=== PATIENT | female | born 1955 | race Hispanic/Latino ===

== ENCOUNTER → 2018-08-31 | Day surgery (SDC) | payer OTHER ==
[~2018-08-31] MED LIST: FENTANYL CITRATE/PF 100MCG/2 ML INJ ONE; FIBER SELECT G1 EACH PO; LEVOTHYROXINE75 MCG PO; LISINOPRIL10 MG PO; MIDAZOLAM HCL 2 MG/2 ML VIAL ONE; PANTOPRAZOLE SO40 MG PO; PROBIOTICS PO; PROPOFOL IV EMULSION 10 MG/ML 50 ML VIAL ONE
[2018-08-31 16:45] VITALS: BP 122/70
== END | disposition home or self-care (01) ==
LOC: OR 12:39
PROVIDERS: ATTEND Internal Medicine Gastroenterology
DX: Z09 Encounter for follow-up examination after completed treatment for conditions other than malignant neoplasm (principal); C16.4 Malignant neoplasm of pylorus; K29.50 Unspecified chronic gastritis without bleeding; K44.9 Diaphragmatic hernia without obstruction or gangrene; K31.89 Other diseases of stomach and duodenum; K21.9 Gastro-esophageal reflux disease without esophagitis; I10 Essential (primary) hypertension; E03.9 Hypothyroidism, unspecified; Z01.810 Encounter for preprocedural cardiovascular examination; Z68.37 Body mass index [BMI] 37.0-37.9, adult; Z86.19 Personal history of other infectious and parasitic diseases
CPT/HCPCS: 43239; 93005; J2250; J2704

== ENCOUNTER 2018-10-04 07:25 | Inpatient (IN) | payer OTHER ==
[2018-10-01 11:55] LABS: BASOPHILS % 0.4 % (0.0-1.0); EOSINOPHILS # (AUTO) 0.1 (0.0-0.4); EOSINOPHILS % 1.3 % (0.0-6.0); HEMATOCRIT 37.5 % (34.2-44.1); HEMOGLOBIN 11.7 g/dL (12.0-16.0); LYMPHOCYTES # (AUTO) 1.8 (1.0-3.2); MEAN CORPUSCULAR HEMOGLOBIN 27.9 pg (28-32); MEAN CORPUSCULAR HGB CONC 31.2 g/dL (31-35); MEAN CORPUSCULAR VOLUME 89.3 fL (81-99); MONOCYTES # (AUTO) 0.7 (0.2-0.8); MONOCYTES % 8.1 % (4.4-11.3); NEUTROPHILS # (AUTO) 5.6 (2.1-6.9); PLATELET COUNT 214 x10e3/uL (140-360); RED CELL DISTRIBUTION WIDTH 12.8 % (11.7-14.4)
[2018-10-01 12:14] LABS: ALANINE AMINOTRANSFERASE 17 IU/L (0-55); ALBUMIN 3.8 g/dL (3.5-5.0); ALKALINE PHOSPHATASE 90 IU/L (40-150); ANION GAP 12.2 mmol/L (8-16); BLOOD UREA NITROGEN 9 mg/dL (7-26); BUN/CREATININE RATIO 11 (6-25); CALCIUM 9.4 mg/dL (8.4-10.2); CARBON DIOXIDE 28 mmol/L (22-29); CHLORIDE 100 mmol/L (98-107); EST GLOMERULAR FILTRATION RATE > 60 ML/MIN (60-); GLUCOSE 100 mg/dL (74-118); POTASSIUM 4.2 mmol/L (3.5-5.1); SODIUM 136 mmol/L (136-145)
--- NOTE | 2018-10-01 12:21 | Diagnostic Imaging Report ---
EXAMINATION: CHEST 2 VIEWS INDICATION: Pre-op. COMPARISON: None FINDINGS: TUBES and LINES: None. LUNGS: Lungs are well inflated. Lungs are clear. There is no evidence of pneumonia or pulmonary edema. PLEURA: No pleural effusion or pneumothorax. HEART AND MEDIASTINUM: The cardiomediastinal silhouette is unremarkable. BONES AND SOFT TISSUES: No acute osseous abnormality. There are old healed left posterior fourth through seventh rib fractures. UPPER ABDOMEN: No free air under the diaphragm. There are cholecystectomy clips. IMPRESSION: No acute radiographic abnormality. Signed by: Dr. Darren Aguirre MD on 10/01/2018 12:17 PM
[2018-10-04] VITALS (11 sets, daily range): BP systolic 104–130; BP diastolic 53–65
[~2018-10-04] VITALS: Ht 152.4 cm; Wt 85.0 kg
[~2018-10-04 07:25] MED LIST changes: -FENTANYL CITRATE/PF 100MCG/2 ML INJ ONE; -MIDAZOLAM HCL 2 MG/2 ML VIAL ONE; -PROPOFOL IV EMULSION 10 MG/ML 50 ML VIAL ONE
--- OUTSIDE RECORDS SUMMARY | 2018-10-04 07:27 | XMS REPORT ---
Author Author [facility] Address Unknown Phone Unavailable Care Team Providers Care Microgrinder Operator Name Role Phone Apurva HOWARD Unavailable Unavailable Problems This patient has no known problems. Allergies, Adverse Reactions, Alerts This patient has no known allergies or adverse reactions. Medications This patient has no known medications. Results Test Description Test Time Test Comments Text Results Atomic Results Result Comments CHEST 2 VIEWS 2018-10-01 12:16:00 [place] [address] Patient Name: MATT MARTINES MR #: [id number] : 1955 Age/Sex: 63/F Req #: [id number] Adm Physician: Ordered by: TY HOWARD MD Report #: [id number] Location: OR Room/Bed: Procedure: [id number] DX/CHEST 2 VIEWS Exam Date: 10/01/18 Exam Time: 1153 REPORT STATUS: Signed EXAMINATION: CHEST 2 VIEWS INDICATION: Pre-op. COMPARISON: None FINDINGS: TUBES and LINES: None. LUNGS: Lungs are well inflated. Lungs are clear. There is no evidence of pneumonia or pulmonary edema. PLEURA: No pleural effusion or pneumothorax. HEART AND MEDIASTINUM: The cardiomediastinal silhouette is unremarkable. BONES AND SOFT TISSUES: No acute osseous abnormality. There are old healed left posterior fourth through seventh rib fractures. UPPER ABDOMEN: No free air under the diaphragm. There are cholecystectomy clips. IMPRESSION: No acute radiographic abnormality. Signed by: Dr. Lamin Amos MD on 10/01/2018 12:17 PM Dictated By: LAMIN AMOS MD 121 Transcribed By: RICK on 10/01/181216 COPY TO: TY HOWARD MD
[2018-10-04] MEDS ORDERED: MINERAL OIL STERILE 10ML VIAL ONE (10:30)
[2018-10-04] MEDS ORDERED: ACETAMINOPHEN 1000 MG/100 ML 100 ML IV ONE (13:30)
[2018-10-04] MEDS: DEXTROSE 5%/LACTATED RINGERS 1,000 ML IV SCH ×2 (13:58→19:35)
[2018-10-04] MEDS ORDERED: NALOXONE HCL INJ 0.4 MG/ML AMP IV PRN (14:00)
[2018-10-04] MEDS ORDERED: ACETAMINOPHEN 1000 MG/100 ML IV PRN (14:00)
[2018-10-04] MEDS ORDERED: ONDANSETRON HCL INJ 2MG/ML 2ML 2 MG/ML VIAL IV PRN (14:00)
[2018-10-04] MEDS ORDERED: ONDANSETRON HCL INJ 2MG/ML 2ML 2 MG/ML VIAL ONE ×2 (14:32→19:58)
[2018-10-04] MEDS ORDERED: METOCLOPRAMIDE HCL 10 MG/2ML VIAL ONE (14:47)
[2018-10-04] MEDS ORDERED: HYDROMORPHONE 0.2MG/ML-SOD CHL 30ML PCA SYRINGE IV ONE (14:52)
[2018-10-04] MEDS: HYDROMORPHONE 0.2MG/ML-SOD CHL 30ML PCA SYRINGE IV PRN (14:55)
[2018-10-04] MEDS ORDERED: HYDROMORPHONE 2MG/ML 2 MG/ML ML ONE (14:57)
[2018-10-04] MEDS: SODIUM CHLORIDE 0.9% 250ML IRRIG IR SCH ×3 (15:00→22:02)
[2018-10-04] MEDS ORDERED: PNEUMOCOCCAL VACCINE POLYVALENT 23 MCG/0.5 ML VIAL IM SCH (15:41)
[2018-10-04] MEDS ORDERED: CEFOXITIN 1GM/ NS 50ML 50 ML IV SCH (18:00)
[2018-10-04] MEDS: NITROGLYCERIN 2% OINT 1 GM PKT TOP SCH ×2 (18:37→23:31)
[2018-10-04] MEDS ORDERED: MIDAZOLAM HCL 2 MG/2 ML VIAL ONE (19:31)
[2018-10-04] MEDS ORDERED: FENTANYL CITRATE/PF 100MCG/2 ML INJ ONE (19:31)
[2018-10-04] MEDS ORDERED: CEFOXITIN SOD 1 GM VIAL ONE (19:58)
[2018-10-04] MEDS ORDERED: LIDOCAINE HCL 2% LOCAL INJ 5 ML SDV VIAL INJ ONE (19:58)
[2018-10-04] MEDS ORDERED: DEXAMETHASONE SOD PHOS INJ 4 MG/ML VIAL ONE (19:58)
[2018-10-04] MEDS ORDERED: PROPOFOL IV EMULSION 10 MG/ML 20 ML VIAL ONE (19:58)
[2018-10-04] MEDS ORDERED: SEVOFLURANE INHAL SOLN 250 ML PEN BTL ONE (19:58)
[2018-10-04] MEDS ORDERED: ROCURONIUM BROMIDE 10 MG/ML 5ML VIAL ONE (19:58)
[2018-10-04] MEDS ORDERED: GLYCOPYRROLATE INJ 1MG/ 5 ML SYR ONE (19:58)
[2018-10-04] MEDS ORDERED: NEOSTIGMINE 5 MG/5ML SYR ONE (19:58)
--- NOTE | 2018-10-04 20:23 | Operative Report ---
DATE OF PROCEDURE: 10/04/2018 SURGEON: Uvaldo Arreola MD PREOPERATIVE DIAGNOSIS: Carcinoma of the distal stomach. POSTOPERATIVE DIAGNOSIS: Carcinoma of the distal stomach. OPERATION PERFORMED: Exploratory laparotomy, subtotal gastrectomy with antecolic Hedy-en-Y reconstruction. ASSISTANTS: 1. Jonathon Arreola MD. 2. LEONARDA Rice. ANESTHESIA: General. COMPLICATIONS: None. ESTIMATED BLOOD LOSS: 100 mL. DESCRIPTION OF PROCEDURE: With the patient lying in bed in the supine position under good general endotracheal anesthesia, the abdomen was prepped with Betadine solution and draped in the usual manner. An upper midline incision was made. It was carried down through the subcutaneous tissue down to the midline fascia. The midline fascia was opened. The peritoneum was opened and the abdomen was entered. Upon entering the abdominal cavity, examination revealed the fact that there was a hard mass at the area of the pylorus and the pre-pyloric area. There were some palpable lymph nodes in the left gastric area. The liver was clean of any disease. The omentum was clean of any disease. The rest of the abdominal cavity appeared to be within normal limits. There were some adhesions to the subhepatic space from the patient's previous cholecystectomy. We decided to go ahead and proceed with a subtotal gastrectomy as had been planned. The mesentery of the colon was then detached from the colon and the mesentery of the lesser sac was similarly and brought upwards. At this point, we had good access to the retrogastric space and we could see where the lesion was stuck to the anterior aspect of the pancreas. There was some adenopathy palpable in the left gastric area, but it was difficult to tell whether this was just simply a reactive thing from the patient having a chronic gastric outlet obstruction. The short gastrics were then taken down with EnSeal device. The proximal stomach was then divided with three applications of the [place] stapler doing roughly about 85% gastrectomy. The left gastric was then identified and ligated with #0 silk. The lesser curvature was then freed up all the way down to the area of the pylorus and at this point, we slowly and carefully the pancreas from the lesion. Everything was ligated with 2-0 silk ties or 2-0 silk suture ligatures. This gave us complete separation and then the duodenum was divided with an application of the TA-60 stapler and the specimen was sent for pathological examination. After this was done, hemostasis was ascertained. The gastric remnant with staple line was then oversewn with 2-0 silk sutures. The duodenal stump was oversewn with 3-0 silk sutures. The ligament of Treitz was then identified and distal to the ligament of Treitz, the jejunum was divided with an application of ANITA-75 stapler. The Hedy-en-Y limb was then brought up to the upper abdomen in an antecolic fashion and the gastrojejunal anastomosis was then performed with another application of ANITA-75 stapler with the remaining opening closed with a TA-60 stapler. The anastomosis was then reinforced with 2-0 silk sutures. 60 cm distal to the gastrojejunostomy, a jejunojejunostomy was then performed with another application of ANITA-75 stapler and the remaining opening was closed with a TA-60 stapler. The anastomosis was reinforced with 3-0 silk. The mesenteric rent to the Hedy limb was then closed with a running suture of 2-0 Vicryl. The abdomen was then copiously irrigated. Perfect hemostasis was ascertained. The NG tube was placed in the pouch properly and the abdomen was then closed in layers. The peritoneum was closed with a running suture of #1 Vicryl. The midline fascia was closed with a running suture of #1 PDS. The subcutaneous tissue was approximated with 2-0 chromic and the skin was closed with clips. A dressing was applied. The sponge, lap, and needle count was correct. The patient tolerated the procedure well and returned to the recovery room in stable condition. MD DAMIR Gibbs/MICHELL /[id number]
[2018-10-04] MEDS: CEFOXITIN 1GM/ NS 50ML 50 ML IV SCH (20:37)
[2018-10-05] VITALS (18 sets, daily range): BP systolic 89–137; BP diastolic 46–100
[2018-10-05] MEDS: SODIUM CHLORIDE 0.9% 250ML IRRIG IR SCH ×6 (02:00→21:53)
[2018-10-05] MEDS: CEFOXITIN 1GM/ NS 50ML 50 ML IV SCH (03:11)
[2018-10-05 04:59] LABS: BASOPHILS % 0.1 % (0.0-1.0); HEMATOCRIT 27.1 % (34.2-44.1); HEMOGLOBIN 8.5 g/dL (12.0-16.0); LYMPHOCYTES # (AUTO) 0.6 (1.0-3.2); LYMPHOCYTES % 4.6 % (18.0-39.1); MEAN CORPUSCULAR HEMOGLOBIN 28.2 pg (28-32); MEAN CORPUSCULAR HGB CONC 31.4 g/dL (31-35); MONOCYTES % 7.3 % (4.4-11.3); NEUTROPHILS # (AUTO) 12.3 (2.1-6.9); NEUTROPHILS % 87.5 % (38.7-80.0); PLATELET COUNT 179 x10e3/uL (140-360); RED BLOOD COUNT 3.01 x10e6/uL (3.6-5.1); RED CELL DISTRIBUTION WIDTH 13.1 % (11.7-14.4)
[2018-10-05] MEDS: DEXTROSE 5%/LACTATED RINGERS 1,000 ML IV SCH ×3 (05:17→19:20)
[2018-10-05] MEDS: NITROGLYCERIN 2% OINT 1 GM PKT TOP SCH ×2 (05:22→12:00)
[2018-10-05 05:34] LABS: ANION GAP 8.5 mmol/L (8-16); CREATININE, SERUM 1.01 mg/dL (0.57-1.11); POTASSIUM 4.5 mmol/L (3.5-5.1)
[2018-10-05 08:49] LABS: EOSINOPHILS % (MANUAL) 1 % (0-7); LYMPHOCYTES % (MANUAL) 9 % (19-48); MONOCYTES % (MANUAL) 1 % (3.4-9.0); NEUTROPHILS % (MANUAL) 89 % (40-74)
[2018-10-05] MEDS: HYDROMORPHONE 0.2MG/ML-SOD CHL 30ML PCA SYRINGE IV PRN (08:57)
--- NOTE | 2018-10-05 11:39 | NUR ---
patient stood up to chair, got a little dizzy, but is still down now and she states she feels good. vss
--- NOTE | 2018-10-05 15:00 | NUR ---
Nutrition Screen Note RD Recommendation for Physician: -Rec advancing to GI soft diet as medically appropriate -The patient meets criteria for MODERATE protein-calorie malnutrition. Plan of Care: RD following, monitoring for tolerance and adequacy Nutrition reason for involvement: Nutrition Risk Trigger MST Primary Diagnose(s): stomach cancer s/p subtotal gastrectomy on 10/04 PMH: No H&P in chart Ht: 60in Wt: 186lb BMI: 36.3kg/m2 IBW: 100lb RD Assessment: (10/05) Chart reviewed. Labs and meds reviewed. 63yo F, s/p subtotal gastrectomy on 10/04. POD 1. Visited pt in the room. NGT to wall suction. IVF running at 125mL/hr. Pt was doing well after surgery. No GI complains noted. Flatus absent but pt was burping. 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 No physical sign of muscle and fat loss noted. Will continue to monitor and follow. Please consult as needed. Current Diet: NPO Malnutrition Evaluation (10/05) The patient meets criteria for MODERATE protein-calorie malnutrition. Energy intake: <75% of estimated energy requirements for >1 month Weight loss: >5% in 1 month (Acute) Fat loss: None Muscle loss: None Supporting Evidence: Fluid accumulation: unable to evaluate Functional Status: no changes Diet Education Needs Assessment: Diet education not indicated. Nutrition Care Level: low Signed: Susie Sauceda, MS, RD, LD
--- NOTE | 2018-10-05 17:14 | NUR ---
CASE MANAGEMENT INITIAL ASSESSMENT District Court Justice to bedside to discuss plan of care with patient/family. CM/SW role and care transitions discussed. Anticipated discharge plan discussed along with duration of care. CM/SW discussed patients right to make decisions in care. CM/SW work hours given. Patient lives: Admit/Transfer: DIRECT ADMIT Hospital/ER visits since last admit:0 POA/Emergency contact: MAURICIO MARTINES Current/Previous Home Health: NONE PCP/Follow-up Care: DR MCKEON Current/Previous DME:NONE Medications (referring to index hospitalization or the first time you were in the hospital) a. Were changes made in your medications when you were in the hospital on [date of index hospitalization]? Yes No Not sure Explain: Note: If no or not sure, please skip to question d b. Did you understand the changes? Yes No Explain: c. Were you able to obtain your new medications right away? Yes No n/a SNF only Explain: d. Were you able to take your medications like the doctor wanted you to? Yes No Explain: e. Did the hospital give you an accurate, easy to understand list of medications when you left? Yes No n/a SNF only Explain: Scale of 1-10 how comfortable does patient feel with disease management in outpatient settin Other Services: NONE Employment Status: WORKS Areas of Concerns: CANCER Referral Needs: TO BE DETERMINED Education Needs: TO BE DETERMINED IMM/SÁNCHEZ given and signed (if applicable): N/A Goal for discharge:HOME WITH SOON POSSIBLE CM/SW left business card at the bedside with contact information. Name and number was also written on the patients whiteboard. Patient verbalized understanding of discussion. CM will follow-up with ongoing discharge and transition of care needs.
--- NOTE | 2018-10-05 17:17 | NUR ---
ARRIVED VIA WC FROM ICU, STANDBY ASSIST TO GET IN BED, NGT IRRIGATED AND CONNECTED TO LCWS, DENIES PAIN AT THIS TIME, CALL LIGHT WITHIN REACH, FAMILY AT SIDE
--- NOTE | 2018-10-05 19:06 | NUR ---
WALKING ROUNDS PERFORMED, RECEIVED PT LAYING SEMI FOWLERS IN BED, AAOX3, RR EVEN AND NON-LABORED, ON RA. NGT TO (L) NARE CONNECTED TO SUCTION. NO S/SX OF DISTRESS NOTED. FIRST BREAKER FEEDER BUTTON WITHIN REACH. LEFT PT LAYING SEMI FOWLERS IN BED, BED IN LOW LOCKED POSITION, SIDE RAILS UPX2, CALL LIGHT AND PHONE WITHIN REACH.
--- NOTE | 2018-10-05 21:53 | NUR ---
REPOSITIONED PT IN BED FOR COMFORT.
[2018-10-06] VITALS (7 sets, daily range): BP systolic 135–163; BP diastolic 61–69
[2018-10-06] MEDS: SODIUM CHLORIDE 0.9% 250ML IRRIG IR SCH ×6 (02:05→23:00)
[2018-10-06] MEDS: HYDROMORPHONE 0.2MG/ML-SOD CHL 30ML PCA SYRINGE IV PRN (02:53)
[2018-10-06] MEDS: DEXTROSE 5%/LACTATED RINGERS 1,000 ML IV SCH ×3 (02:58→21:56)
--- NOTE | 2018-10-06 07:00 | NUR ---
PT RESTING IN BED AA0X3. PT IS IN NO S.S OF DISTRESS. PT IS ON CLINICAL REVIEW SPECIALIST PUMP FOR PAIN COMFORT S/P GASTRECTOMY. DRESSING TO ABD CLEAN AND DRY. COVERED WITH ABD BINDER. PT IS NPO AND ON IV FLUIDS FOR NOW. IV IN PLACE DRY AND INTACT W/OUT S/ OF INFILTRATION. NG TUBE TO THE LEFT NARE WITH LCS. CANISTER FILLED TO ABOUT 200CC WITH DARK BROWN/RED OUTPUT. WILL CONTINUE TO MONITOR PT AT THIS TIME, SIDE RAILSX2, BED WHEELS LOCKED, CALL LIGHT IS WITHIN EASY REACH, INSTRUCTED TO CALL FOR ASSISTANCE IF NEEDED
[2018-10-06 08:01] LABS: BASOPHILS % 0.2 % (0.0-1.0); EOSINOPHILS # (AUTO) 0.2 (0.0-0.4); EOSINOPHILS % 1.9 % (0.0-6.0); HEMATOCRIT 25.9 % (34.2-44.1); HEMOGLOBIN 8.1 g/dL (12.0-16.0); LYMPHOCYTES # (AUTO) 1.2 (1.0-3.2); LYMPHOCYTES % 10.2 % (18.0-39.1); MEAN CORPUSCULAR HEMOGLOBIN 28.8 pg (28-32); MEAN CORPUSCULAR HGB CONC 31.3 g/dL (31-35); MEAN CORPUSCULAR VOLUME 92.2 fL (81-99); MONOCYTES # (AUTO) 1.4 (0.2-0.8); MONOCYTES % 11.7 % (4.4-11.3); NEUTROPHILS % 75.6 % (38.7-80.0); PLATELET COUNT 159 x10e3/uL (140-360); RED BLOOD COUNT 2.81 x10e6/uL (3.6-5.1); RED CELL DISTRIBUTION WIDTH 13.5 % (11.7-14.4)
[2018-10-06 08:11] LABS: ANION GAP 7.2 mmol/L (8-16); BLOOD UREA NITROGEN 6 mg/dL (7-26); BUN/CREATININE RATIO 9 (6-25); CALCIUM 8.3 mg/dL (8.4-10.2); CARBON DIOXIDE 27 mmol/L (22-29); CHLORIDE 104 mmol/L (98-107); CREATININE, SERUM 0.68 mg/dL (0.57-1.11); EST GLOMERULAR FILTRATION RATE > 60 ML/MIN (60-); GLUCOSE 120 mg/dL (74-118); POTASSIUM 4.2 mmol/L (3.5-5.1); SODIUM 134 mmol/L (136-145)
[2018-10-06] MEDS ORDERED: HYDROMORPHONE 0.2MG/ML-SOD CHL 30ML PCA SYRINGE IV PRN (11:45)
[2018-10-06] MEDS ORDERED: BISACODYL 10 MG SUPP PR ONE (11:45)
--- NOTE | 2018-10-06 11:56 | NUR ---
PT VOIDED AFTER COULTER REMOVAL INTO TOILET AT THIS TIME
--- NOTE | 2018-10-06 12:41 | NUR ---
BASAL DC AT THIS TIME FROM APPLICATION SECURITY CONSULTANT PUMP
--- NOTE | 2018-10-06 20:41 | Diagnostic Imaging Report ---
Abdomen/KUB INDICATION: ^NGT PLACEMENT ^20181006 ^2019 COMPARISON: None. FINDINGS: Portable, supine image obtained at 6 hours. The lung bases were not included on the image. Medical Devices: The terminus of a nasogastric tube is visualized. It may or may not be within the stomach. The sidehole is not included on this image. There are multiple ventral abdominal wall solange. Cholecystectomy clips are present. Bowel: Unremarkable bowel gas pattern. No dilated bowel loops. No pneumatosis Free air: None Calcifications: Lobulated calcification in the pelvis measures 2 cm and may be related to a fibroid. Organomegaly: None Bones: Degenerative changes of the lower lumbar spine. IMPRESSION: The distal aspect of the NG tube is not imaged. Precise location within the stomach cannot be ascertained. Unremarkable bowel gas pattern. Signed by: Dr. Joanie Breen MD on 10/06/2018 8:37 PM
--- NOTE | 2018-10-06 22:42 | Diagnostic Imaging Report ---
EXAM: ABDOMEN-1VIEW (KUB) DATE: 10/06/2018 9:14 PM INDICATION: NG tube placement COMPARISON: KUB 10/06/2018 FINDINGS: LINES/TUBES: Nasogastric tube tip and sidehole project over the gastric fundus and body. BOWEL PATTERN: No evidence for obstruction. SOFT TISSUES: No abnormal calcifications. No mass effect. Skin solange along the midline abdomen. Surgical clips in the right upper quadrant. LUNG BASES: Left basilar atelectasis. BONES: No acute findings. IMPRESSION: Nasogastric tube tip and sidehole project over the stomach. Signed by: DR. Garry Shin MD on 10/06/2018 10:39 PM
[2018-10-07] VITALS (7 sets, daily range): BP systolic 141–170; BP diastolic 62–71
[2018-10-07] MEDS: NITROGLYCERIN 2% OINT 1 GM PKT TOP PRN ×3 (00:21→21:30)
[2018-10-07] MEDS: SODIUM CHLORIDE 0.9% 250ML IRRIG IR SCH ×4 (02:03→14:51)
[2018-10-07] MEDS: DEXTROSE 5%/LACTATED RINGERS 1,000 ML IV SCH ×3 (03:08→19:00)
[2018-10-07 05:57] LABS: BASOPHILS % 0.1 % (0.0-1.0); EOSINOPHILS % 0.2 % (0.0-6.0); HEMATOCRIT 26.7 % (34.2-44.1); HEMOGLOBIN 8.3 g/dL (12.0-16.0); LYMPHOCYTES # (AUTO) 1.6 (1.0-3.2); LYMPHOCYTES % 14.2 % (18.0-39.1); MEAN CORPUSCULAR HEMOGLOBIN 28.4 pg (28-32); MEAN CORPUSCULAR HGB CONC 31.1 g/dL (31-35); MEAN CORPUSCULAR VOLUME 91.4 fL (81-99); MONOCYTES # (AUTO) 1.1 (0.2-0.8); MONOCYTES % 9.5 % (4.4-11.3); NEUTROPHILS # (AUTO) 8.5 (2.1-6.9); NEUTROPHILS % 75.5 % (38.7-80.0); PLATELET COUNT 203 x10e3/uL (140-360); RED BLOOD COUNT 2.92 x10e6/uL (3.6-5.1); RED CELL DISTRIBUTION WIDTH 13.3 % (11.7-14.4)
[2018-10-07 06:20] LABS: ANION GAP 8.9 mmol/L (8-16); BLOOD UREA NITROGEN < 5 mg/dL (7-26); CALCIUM 8.7 mg/dL (8.4-10.2); CARBON DIOXIDE 29 mmol/L (22-29); CHLORIDE 102 mmol/L (98-107); CREATININE, SERUM 0.67 mg/dL (0.57-1.11); EST GLOMERULAR FILTRATION RATE > 60 ML/MIN (60-); GLUCOSE 123 mg/dL (74-118); POTASSIUM 3.9 mmol/L (3.5-5.1); SODIUM 136 mmol/L (136-145)
[2018-10-07 06:23] LABS: BUN/CREATININE RATIO 7 (6-25)
[2018-10-07] MEDS ORDERED: HYDROMORPHONE 2MG/ML 2 MG/ML ML IV PRN (18:15)
--- NOTE | 2018-10-07 18:18 | NUR ---
ng tube dc at this time. pt tolerated well instructor substitute cosmetology pump dc . pt aware of pain medicine available on emar to ask for if needing pain management. will continue to monitor at this time.
[2018-10-07] MEDS: BISACODYL 10 MG SUPP PR SCH (21:35)
[2018-10-08] VITALS (8 sets, daily range): BP systolic 136–156; BP diastolic 60–66
--- NOTE | 2018-10-08 07:00 | NUR ---
BEDSIDE ROUNDS COMPLETE NO DISTRESS NOTED UPDATED ON POC VOICED UNDERSTANDING, DENIES PAIN AT THIS TIME, IVF INFUSING TO R HAND 20G NO SS OF INFILTRATION NOTED, NO OTHER CO VOICED CALL LIGHT IN REACH WILL CONTINUE OT MONITOR
[2018-10-08] MEDS: BISACODYL 10 MG SUPP PR SCH (08:10)
--- NOTE | 2018-10-08 08:30 | NUR ---
UP TO BATHROOM WITH ASSISTANCE, THEN ASSISTED TO CHAIR. DENIES PAIN AT THIS TIME, WILL CONTINUE OT MONITOR
--- NOTE | 2018-10-08 13:34 | NUR ---
PER DISCUSSION IN ROUNDS WITH INTERDISCIPLINARY TEAM, PATIENT TO ADVANCED DIET FOR LUNCH TO CLEAR LIQUIDS AND IF TOLERATING ADVANCE FOR DINNER FOR POSSIBLE DISCHARGE TOMORROW.
[2018-10-08] MEDS: DEXTROSE 5%/LACTATED RINGERS 1,000 ML IV SCH ×2 (14:00→21:51)
--- NOTE | 2018-10-08 17:39 | NUR ---
Nutrition Screen Note RD Recommendation for Physician: - Rec advancing to GI soft diet as medically appropriate - If PO <50% on regular diet, rec Ensure Compact BID - The patient meets criteria for MODERATE protein-calorie malnutrition. Plan of Care: RD following, monitoring for tolerance and adequacy Nutrition reason for involvement: Follow-up Primary Diagnose(s): stomach cancer s/p subtotal gastrectomy on 10/04 PMH: No H&P in chart Ht: 60in Wt: 186lb; 195lb BMI: 36.3kg/m2 IBW: 100lb RD Assessment: (10/08) POD 4. NGT discontinued. Pt was advanced to clear liquid for lunch today. Visited pt in the room. Pt was tolerating clear liquid during my visit. Flatus present. No complains of nausea or vomiting. No chewing or swallowing issue noted. Will continue to monitor and follow. (10/05) Chart reviewed. Labs and meds reviewed. 63yo F, s/p subtotal gastrectomy on 10/04. POD 1. Visited pt in the room. NGT to wall suction. IVF running at 125mL/hr. Pt was doing well after surgery. No GI complains noted. Flatus absent but pt was burping. 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 No physical sign of muscle and fat loss noted. Will continue to monitor and follow. Please consult as needed. Current Diet: clear liquid Malnutrition Evaluation (10/05) The patient meets criteria for MODERATE protein-calorie malnutrition. Energy intake: <75% of estimated energy requirements for >1 month Weight loss: >5% in 1 month (Acute) Fat loss: None Muscle loss: None Supporting Evidence: Fluid accumulation: unable to evaluate Functional Status: no changes Diet Education Needs Assessment: Diet education not indicated. Nutrition Care Level: low Signed: Susie Sauceda, MS, RD, LD
[2018-10-08] MEDS ORDERED: BISACODYL 10 MG SUPP PR SCH (21:00)
[2018-10-09] VITALS (8 sets, daily range): BP systolic 127–160; BP diastolic 60–68
--- NOTE | 2018-10-09 01:30 | NUR ---
IV TO RIGHT HAND AND FOREARM INFILTRATED. PAIN, REDNESS AND SWELLING NOTED. ON GOING FLUID STOPPED AND IV PULLED OUT. IV GUAGE 22 INSERTED TO LEFT HAND.
--- NOTE | 2018-10-09 03:21 | NUR ---
BP STILL ELEVATED 155/64 MMHG. PRN GIVEN.
[2018-10-09] MEDS: NITROGLYCERIN 2% OINT 1 GM PKT TOP PRN (03:22)
[2018-10-09] MEDS: LEVOTHYROXINE SODIUM 75 MCG TAB PO SCH (05:14)
--- NOTE | 2018-10-09 07:00 | NUR ---
bedside rounds complete no distress noted, updated on poc voiced understanding, denies pain at this time, ivf infusing to l hand 20g no ss of infiltration noted, no other co voiced call light in reach will continue to monitor
[2018-10-09] MEDS: LISINOPRIL 10 MG TAB PO SCH (08:30)
[2018-10-09] MEDS: DEXTROSE 5%/LACTATED RINGERS 1,000 ML IV SCH (08:37)
--- NOTE | 2018-10-09 11:14 | NUR ---
michelle rental sales agent at bedside, education re: post gastrectomy diet
--- NOTE | 2018-10-09 12:33 | NUR ---
Nutrition Screen Note RD Recommendation for Physician: -Continue Post gastrectomy diet Plan of Care: RD following, monitoring for tolerance and adequacy Nutrition reason for involvement: Nutrition Education Primary Diagnose(s): stomach cancer s/p subtotal gastrectomy on 10/04 PMH: No H&P in chart Ht: 60in Wt: 186lb; 195lb, 187.5# BMI: 36.6kg/m2 IBW: 100lb RD Assessment: (10/09) Surgeon advanced diet to a Post gastrectomy diet today for lunch. Pt tolerated clear liquid. No C/O N, V. No difficulty chewing or swallowing. Education provided to pt and (10/08) POD 4. NGT discontinued. Pt was advanced to clear liquid for lunch today. Visited pt in the room. Pt was tolerating clear liquid during my visit. Flatus present. No complains of nausea or vomiting. No chewing or swallowing issue noted. Will continue to monitor and follow. (10/05) Chart reviewed. Labs and meds reviewed. 63yo F, s/p subtotal gastrectomy on 10/04. POD 1. Visited pt in the room. NGT to wall suction. IVF running at 125mL/hr. Pt was doing well after surgery. No GI complains noted. Flatus absent but pt was burping. 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 No physical sign of muscle and fat loss noted. Will continue to monitor and follow. Please consult as needed. Current Diet: Post gastrectomy diet Malnutrition Evaluation (10/05) The patient meets criteria for MODERATE protein-calorie malnutrition. Energy intake: <75% of estimated energy requirements for >1 month Weight loss: >5% in 1 month (Acute) Fat loss: None Muscle loss: None Supporting Evidence: Fluid accumulation: unable to evaluate Functional Status: no changes Diet Education Needs Assessment: Nutrition Education Learner(s): Pt and Barriers: none Cultural/Language Modifications: Readiness: Willing Method: Verbal and handout Topics: Gastrectomy diet Understanding/Compliance: Expect compliance and pt was able to understand information provided Nutrition Care Level: saima Hopson RD, LD, [facility]
[2018-10-10 04:00] VITALS: BP_SYST 133; BP_SYST 139; BP_DIAS 61; BP_DIAS 62
[2018-10-10] MEDS: LEVOTHYROXINE SODIUM 75 MCG TAB PO SCH (05:38)
[2018-10-10] MEDS: LISINOPRIL 10 MG TAB PO SCH (09:44)
[2018-10-10 10:58] VITALS: BP 121/57
[2018-10-10 11:55] VITALS: BP 121/57
[2018-10-10 12:40] VITALS: BP 125/61
[2018-10-10 17:23] VITALS: BP 143/64
[2018-10-10 20:21] VITALS: BP 115/58
[2018-10-11 00:44] VITALS: BP 140/61
[2018-10-11 05:08] VITALS: BP 130/58
[2018-10-11] MEDS: LEVOTHYROXINE SODIUM 75 MCG TAB PO SCH (05:29)
--- NOTE | 2018-10-11 07:13 | NUR ---
REPORT GIVEN TO ONCOMING NURSE.WALKING ROUNDS MADE.PT RESTING IN BED WITH NO S/S OF DISTRESS.
[2018-10-11 07:28] VITALS: BP 132/63
--- NOTE | 2018-10-11 07:31 | NUR ---
Received patient and walking rounds complete. Patient awake at this time, no signs of distress. Call light in reach, will continue to monitor.
[2018-10-11] MEDS: LISINOPRIL 10 MG TAB PO SCH (08:26)
--- NOTE | 2018-10-11 09:45 | NUR ---
Patient A/O X3, even respirations on RA. Bowel sounds active, no edema. Abdominal incision open to air, abdominal binder in place. Tele #[id number] SR. Left hand 22 gauge IV SL. I.S. at bedside. Call light in reach, will continue to monitor.
[2018-10-11 09:54] VITALS: BP 132/63
[2018-10-11 12:25] VITALS: BP 120/58
--- NOTE | 2018-10-11 14:22 | NUR ---
CALL FROM [facility] WITH [facility] SHE IS HAND SINGER AND CAN ASSIST WITH ANY DISCHARGE NEEDS PH : [phone]
[2018-10-11 16:32] VITALS: BP 125/58
[2018-10-11] MEDS ORDERED: TYLENOL WITH C1 EACH PO (17:32)
[2018-10-11] MEDS ORDERED: PNEUMOCOCCAL VACCINE POLYVALENT 23 MCG/0.5 ML VIAL ONE (17:37)
--- NOTE | 2018-10-11 17:45 | NUR ---
Removed patients IV. Catheter tip intact and pressure dressing applied
--- NOTE | 2018-10-11 17:51 | NUR ---
Pneumococcal vaccine given to left deltoid.
--- NOTE | 2018-10-11 17:55 | NUR ---
Patient discharged from facility. Patient gathered all personal belongings, follow up information, prescriptions, and discharge instructions. Patient left unit in wheelchair and went home via private auto. No signs of distress when leaving facility.
== END 2018-10-11 17:58 | disposition home or self-care (01) | DRG 328 ==
LOC: OR 07:25 → PACU V 14:01 → ICU 15:39 → MED/SURG 10-05 16:39
PROVIDERS: ADMIT Surgery; ATTEND Surgery
PROC: 0D160ZA Bypass Stomach to Jejunum, Open Approach (ICD-10-PCS; 2018-10-04)
PROC: 0DB60ZZ Excision of Stomach, Open Approach (ICD-10-PCS; principal; 2018-10-04 10:31)
DX: C16.9 Malignant neoplasm of stomach, unspecified (principal); I10 Essential (primary) hypertension
CPT/HCPCS: 36415; 71046; 74018; 80048; 80053; 82150; 85025; 88307; 88309; 88342; 90732; J0694; J1100; J2001; J2250; J2405; J2765

== ENCOUNTER → 2018-11-05 | Day surgery (SDC) | payer OTHER ==
[~2018-11-05] MED LIST changes: +ACETAMINOPHEN 1000 MG/100 ML IV ONE; +BUPIVACAINE 0.25%/EPI 30ML SDV INJ ONE; +CEFAZOLIN SOD 1 GM VIAL ONE; +DEXAMETHASONE SOD PHOS INJ 4 MG/ML VIAL ONE; +HEPARIN SOD (PORCINE) 5,000 UNIT/ML VIAL ONE; +LIDOCAINE HCL 2% LOCAL INJ 5 ML SDV VIAL INJ ONE; +MIDAZOLAM HCL 2 MG/2 ML VIAL ONE; +ONDANSETRON HCL INJ 2MG/ML 2ML 2 MG/ML VIAL ONE; +PROPOFOL IV EMULSION 10 MG/ML 20 ML VIAL ONE; +SEVOFLURANE INHAL SOLN 250 ML PEN BTL ONE; +SODIUM CHLORIDE 0.9% 500ML 500 ML ONE; +TYLENOL WITH C1 EACH PO
[2018-11-05 12:30] VITALS: BP 125/60
--- NOTE | 2018-11-05 17:40 | Operative Report ---
DATE OF PROCEDURE: 11/05/2018 SURGEON: Uvadlo Arreola MD PREOPERATIVE DIAGNOSIS: Gastric cancer, needing IV access for chemotherapy. POSTOPERATIVE DIAGNOSIS: Gastric cancer, needing IV access for chemotherapy. OPERATION PERFORMED: Placement of left subclavian venous access port under C-arm guidance. METAL DIE FINISHER: LEONARDA Bui. ANESTHESIA: General. COMPLICATIONS: None. ESTIMATED BLOOD LOSS: Minimal. PROCEDURE IN DETAIL: With the patient lying in bed in the Trendelenburg position under good general anesthesia, the left chest and neck were prepped with Betadine solution and draped in the usual manner. Standard left subclavian venipuncture was performed without any difficulty and a guidewire was advanced into central venous position. The tip of the guidewire was confirmed to be at the level of the superior vena cava with the C-arm and the left lung was fully expanded. A pocket was then created in the left anterior chest to accept the reservoir and the catheter was threaded to the subclavian position. The reservoir was anchored to the anterior chest wall with interrupted sutures of 2-0 silk. The reservoir and catheter were fully heparinized and the catheter was cut to the appropriate length. The peel-away sheath was then placed through the guidewire and the guidewire was removed and the catheter was threaded through the peel-away sheath. The peel-away sheath was removed. There was good blood return and the reservoir and catheter were fully heparinized. Using the C-arm, the tip of the catheter was confirmed to be at the level of the superior vena cava and the left lung was fully expanded. The wounds were then closed in layers. The subcutaneous tissue was approximated with 3-0 and 4-0 Vicryl and the skin was closed with subcuticular 5-0 Vicryl. Benzoin, Steri-Strips, and dressings were applied. The sponge, lap, and needle count was correct. The patient tolerated the procedure well and returned to the recovery room in stable condition. MD DAMIR Gibbs/MODL /[id number]
== END | disposition home or self-care (01) ==
LOC: OR 07:15
PROVIDERS: ATTEND Surgery
DX: C16.9 Malignant neoplasm of stomach, unspecified (principal); Z45.2 Encounter for adjustment and management of vascular access device; I10 Essential (primary) hypertension; E03.9 Hypothyroidism, unspecified; Z90.3 Acquired absence of stomach [part of]
CPT/HCPCS: 36561; 77001; C1751; J0131; J0690; J1100; J1644; J2001; J2250; J2405; J2704; J7040